=== PATIENT | female | born 1970 | race Caucasian/White ===

== ENCOUNTER 2019-08-15 08:12 | Outpatient (CLI) | payer BC ==
--- NOTE | 2019-08-15 10:01 | RAD ---
LUMBAR SPINE 2 VIEWS: HISTORY: Chronic low back pain. COMPARISON: None. FINDINGS: No acute fracture. Moderate narrowing of the L5-S1 disk space. Mild narrowing of the posterior L3-4 disk space. Multiple anterior osteophytes. No significant listhesis. No abnormal translation with flexion or extension. IMPRESSION: 1. Mild degenerative changes. No acute osseous abnormality. 2. No significant translation with flexion or extension. 3. Narrowing of the intraspinous space of L3-L5 greatest with back extension can be the source of pa tient's pain. POS: [facility]
--- NOTE | 2019-08-15 11:17 | CT ---
CT LUMBAR SPINE WITHOUT CONTRAST: Date: 08/15/2019 HISTORY: Chronic low back pain. Degenerative disc disease. FINDINGS: There is no retroperitoneal mass, lymphadenopathy, or hematoma. Visualized solid organs are grossly u nremarkable. No evidence of obstructive uropathy. Atherosclerosis of a nonaneurysmal aorta. Five lumbar-type vertebrae. Lumbar spine vertebral body height is maintained. There is no fracture. E nd plate changes likely due to Schmorl's nodes are noted. No spondylolisthesis or spondylolysis. Limited evaluation of the contents of the central spinal canal and neural foramina due to technique. Vertebral body heights are maintained. There is no fracture. T11-T12: Minimal left and right paracentral disc bulges with calcification of the annulus. Mild cent ral canal stenosis. Bilaterally, neural foramina are patent. T12-L1: Minimal left paracentral disc bulge with calcification of the annulus. Mild central canal st enosis. Bilaterally, neural foramina are patent. L1-L2: Broad based disc bulge with a central/left subarticular protrusion. There is presumed mass ef fect and obscuration of the traversing left L2 nerve root. Bilaterally, neural foramina are patent. L2-L3: No significant central canal stenosis or significant neural foraminal narrowing. L3-L4: Broad based disc bulge without significant central canal stenosis. Mild bilateral foraminal n arrowing predominantly due to posterior element hypertrophy. There is also evidence of disc material in the left neural foramen which contributes to the overall degree of foraminal stenosis. Disc materi al appears to make contact with but not obscure the foraminal left L3 nerve root. L4-L5: Broad based disc bulge does not cause any significant central canal stenosis. Mild bilateral foraminal narrowing. L5-S1: There is a broad based disc osteophyte complex. There is narrowing of the ventral thecal sac and narrowing of the right subarticular zone. There is presumed obscuration of the traversing right S 1 nerve root. Overall, there is mild central canal stenosis. Moderate right foraminal narrowing due t o osteophyte ridge. Mild left foraminal narrowing. IMPRESSION: Degenerative changes of the lumbar spine as above. POS: [facility]
== END 2019-08-15 08:13 | disposition home or self-care (01) ==
LOC: SCSCT 08:12
PROVIDERS: ATTEND Neurological Surgery
DX: M54.5 Low back pain (principal); M47.816 Spondylosis without myelopathy or radiculopathy, lumbar region; M48.061 Spinal stenosis, lumbar region without neurogenic claudication
CPT/HCPCS: 72100; 72131